=== PATIENT | male | born 1990 | race Caucasian/White ===

== ENCOUNTER 2017-01-27 06:28 | Day surgery (SDC) | payer BC ==
[~2017-01-27] VITALS: Ht 180.3 cm; Wt 86.2 kg
[2017-01-27] MEDS ORDERED: LIDOCAINE/EPI MPF 1%1:200000 30 ML VIAL INJ ONE (09:10)
[2017-01-27] MEDS ORDERED: LR 1,000 ML IV ONE (09:29)
[2017-01-27] MEDS ORDERED: ePHEDrine sulfate 50 MG/ML VIAL IVP PRN (09:30)
[2017-01-27] MEDS ORDERED: NALBUPHINE HCL 10 MG/ML AMP IVP PRN (09:30)
[2017-01-27] MEDS ORDERED: fentaNYL CITRATE/PF 100 MCG/2 ML AMP IVP PRN (09:30)
[2017-01-27] MEDS ORDERED: NALOXONE HCL 0.4 MG/ML AMP (NARCAN) IVP PRN (09:30)
[2017-01-27] MEDS ORDERED: DIPHENHYDRAMINE INJ 50 MG/ML VIAL IVP PRN (09:30)
[2017-01-27] MEDS ORDERED: ONDANSETRON HCL 4 MG/2 ML VIAL IVP PRN ×2 (09:30)
[2017-01-27] MEDS ORDERED: DEXAMETHASONE SOD PHOSPHATE 4 MG/ML VIAL IVP ONE (10:17)
[2017-01-27] MEDS ORDERED: LIDOCAINE/EPI 1% 1:100000 20 ML VIAL INJ ONE (10:17)
[2017-01-27] MEDS ORDERED: fentaNYL CITRATE/PF 100 MCG/2 ML AMP IVP ONE (10:17)
[2017-01-27] MEDS ORDERED: MIDAZOLAM HCL 5 MG/5 ML VIAL IVP ONE (10:17)
[2017-01-27] MEDS ORDERED: PROPOFOL 200MG/ 20ML VIAL (DIPRIVAN) IV ONE (10:17)
[2017-01-27] MEDS ORDERED: METOCLOPRAMIDE HCL 10 MG/2 ML VIAL IVP ONE (10:17)
[2017-01-27] MEDS ORDERED: MUPIROCIN 2% TOPICAL OINTMENT 22 GM TP ONE (10:17)
[2017-01-27] MEDS ORDERED: NS 1000 ML BAG IV ONE (10:17)
[2017-01-27] MEDS ORDERED: SEVOFLURANE 15 MIN GAS INH ONE (10:17)
[2017-01-27] MEDS ORDERED: ROCURONIUM BROMIDE 10 MG/ML (ZEMURON) IV ONE (10:17)
[2017-01-27] MEDS ORDERED: OXYMETAZOLINE HCL 0.05% NASAL SPRAY NS ONE (10:17)
[2017-01-27] MEDS ORDERED: LR 1,000 ML IV.SOLN IV ONE (10:17)
[2017-01-27 11:33] VITALS: BP_SYST 132
[2017-01-27] MEDS ORDERED: HYDROcodone/ACETAMIN 5-325 MG TAB (NORCO/ VICODIN) ONE (12:59)
[2017-01-27] MEDS ORDERED: HYDROcodone/ACETAMIN 5-325 MG TAB (NORCO/ VICODIN) PO ONE (13:10)
== END 2017-01-27 13:35 | disposition home or self-care (01) ==
LOC: SDS 06:28 → SMU 06:31 → SDS 13:35
PROVIDERS: ATTEND Otolaryngology
DX: J34.2 Deviated nasal septum (principal); J34.89 Other specified disorders of nose and nasal sinuses
CPT/HCPCS: 30140; 30520; 88305; 88311; J1100; J2250; J2704; J2765; J3010; J7030; J7120

== ENCOUNTER 2020-03-24 06:36 | Emergency (ER) | payer BC ==
[~2020-03-24] VITALS: Ht 180.3 cm; Wt 73.5 kg
[2020-03-24 06:40] VITALS: BP_SYST 134
[2020-03-24] MEDS: MECLIZINE HCL 25 MG TABLET (ANITVERT) PO ONE (06:55)
[2020-03-24 07:18] VITALS: BP_SYST 134
== END 2020-03-24 07:18 | disposition home or self-care (01) ==
LOC: SED 06:36
DX: H93.11 Tinnitus, right ear (principal); F41.9 Anxiety disorder, unspecified
CPT/HCPCS: 99283; J8597